=== PATIENT | female | born 1990 | race Caucasian/White ===

== ENCOUNTER 2022-08-18 06:43 | Day surgery (SDC) | payer BC ==
[~2022-08-18 06:43] MED LIST: Scopolamine 1.5 MG Transdermal Patch TOP ONE
[2022-08-18] MEDS ORDERED: ceFAZolin 2 GM in Premix Bag 1 BAG IV ONE (06:59)
[2022-08-18] MEDS ORDERED: Propofol 200 MG/20 ML SDV ONE (07:13)
[2022-08-18] MEDS ORDERED: fentaNYL 250 MCG/5 ML SDV ONE (07:13)
[2022-08-18] MEDS ORDERED: Dexmedetomidine 200 MCG/2 ML SDV ONE (07:23)
[2022-08-18] MEDS ORDERED: Ketorolac 30 MG/ML SDV ONE (07:23)
[2022-08-18] MEDS ORDERED: Dexamethasone 4 MG/ML 5 ML MDV ONE (07:23)
[2022-08-18] MEDS ORDERED: Lidocaine 2% 5 ML SDV ONE (07:23)
[2022-08-18] MEDS ORDERED: Ondansetron 4 MG/2 ML SDV ONE ×2 (07:23→09:22)
[2022-08-18] MEDS ORDERED: Rocuronium Bromide 50 MG/5 ML Syringe ONE (07:24)
[2022-08-18] MEDS ORDERED: Water For Injection, Sterile 20 ML ONE (07:26)
[2022-08-18] MEDS ORDERED: ceFAZolin 2 GM Vial ONE (07:30)
[2022-08-18] MEDS ORDERED: Famotidine 20 MG/2 ML SDV ONE (07:32)
[2022-08-18] MEDS ORDERED: Ropivacaine 0.5% 5 MG/ML 30 ML SDV ONE (07:32)
[2022-08-18] MEDS ORDERED: fentaNYL 100 MCG/2 ML SDV ONE ×2 (07:34→08:47)
[2022-08-18] MEDS ORDERED: Water For Injection, Sterile 60 ML ONE (07:36)
[2022-08-18] MEDS ORDERED: Methylene Blue 50 MG/10 ML Ampule ONE (07:40)
[2022-08-18] MEDS ORDERED: Bupivacaine 0.25% 30 ML SDV ONE (07:40)
[2022-08-18] MEDS: Lactated Ringers 1,000 ML IV SCH ×2 (07:45→12:11)
[2022-08-18] MEDS ORDERED: Albuterol 0.083% 2.5 MG/3 ML Neb Soln NEB PRN (07:57)
[2022-08-18] MEDS ORDERED: HYDROmorphone 1 MG/ML Syringe IVPUSH PRN (07:57)
[2022-08-18] MEDS ORDERED: Naloxone 0.4 MG/ML SDV IVPUSH PRN (07:57)
[2022-08-18] MEDS ORDERED: Ondansetron 4 MG/2 ML SDV IVPUSH PRN (07:57)
[2022-08-18] MEDS ORDERED: Morphine 2 MG/ML SYRINGE IVPUSH PRN (07:57)
[2022-08-18] MEDS ORDERED: Metoclopramide 10 MG/2 ML SDV IVPUSH PRN (07:57)
[2022-08-18] MEDS ORDERED: fentaNYL 50 MCG/ML SDV IVPUSH PRN (07:57)
[2022-08-18] MEDS ORDERED: propofoL 100 ML ONE (08:31)
[2022-08-18] MEDS ORDERED: Fluorescein 5 ML Vial ONE (09:21)
[2022-08-18] MEDS ORDERED: Sugammadex Sodium 200 MG/2 ML VIAL ONE (09:27)
[2022-08-18] MEDS ORDERED: HYDROmorphone 2 MG/ML Syringe ONE (09:41)
[2022-08-18] MEDS ORDERED: Morphine 4 MG/ML Syringe IVPUSH PRN (10:04)
[2022-08-18] MEDS ORDERED: Acetaminophen/oxyCODONE 325-5 MG Tab PO PRN ×2 (10:04)
[2022-08-18] MEDS: Ondansetron 4 MG/2 ML SDV IVPUSH PRN ×2 (12:28→20:45)
[2022-08-18] MEDS: Promethazine 25 MG/ML SDV IM PRN (16:05)
[2022-08-18] MEDS: Ketorolac 30 MG/ML SDV IVPUSH PRN ×2 (16:10→22:27)
[2022-08-19] MEDS: Ondansetron 4 MG/2 ML SDV IVPUSH PRN ×2 (04:58→17:36)
[2022-08-19] MEDS: Ketorolac 30 MG/ML SDV IVPUSH PRN ×3 (04:58→20:43)
[2022-08-19 06:28] LABS: CARBON DIOXIDE,CO2 25.9 mmol/L (21.0-32.0); POTASSIUM,K 3.4 mmol/L (3.5-5.1)
[2022-08-19] MEDS: Lactated Ringers 1,000 ML IV SCH ×2 (08:19→18:05)
[2022-08-19] MEDS ORDERED: Ibuprofen 600 MG Tab PO PRN (09:44)
[2022-08-19] MEDS: Acetaminophen/Codeine 300-30 MG Tab PO PRN ×2 (10:05→16:33)
[2022-08-20] MEDS: Acetaminophen/Codeine 300-30 MG Tab PO PRN ×2 (01:37→08:24)
[2022-08-20] MEDS: Ondansetron 4 MG/2 ML SDV IVPUSH PRN ×2 (02:05→08:25)
[2022-08-20] MEDS: Lactated Ringers 1,000 ML IV SCH (04:22)
[2022-08-20] MEDS: Promethazine 25 MG/ML SDV IM PRN (05:59)
[2022-08-20] MEDS: Ketorolac 30 MG/ML SDV IVPUSH PRN (05:59)
[2022-08-20 08:05] VITALS: BP 96/65; PULSE 62
== END 2022-08-20 13:20 | disposition home or self-care (01) ==
LOC: MW.SDS 06:43 → MW.MS 10:35 → MW.SDS 08-20 13:20
PROVIDERS: ATTEND Obstetrics & Gynecology
DX: N73.6 Female pelvic peritoneal adhesions (postinfective) (principal); D64.9 Anemia, unspecified; G43.909 Migraine, unspecified, not intractable, without status migrainosus; F41.9 Anxiety disorder, unspecified; M54.9 Dorsalgia, unspecified; G89.29 Other chronic pain; Z79.899 Other long term (current) drug therapy; Z98.890 Other specified postprocedural states; Z20.822 Contact with and (suspected) exposure to COVID-19
CPT/HCPCS: 36415; 58552; 86850; 86900; 86901; 87635; A9270; J0131; J0690; J1100; J1885; J2270; J2405; J2550; J2704; J2795; J3010; J3490; J7030; J7120; 00944; 64488; J1170; U0002